=== PATIENT | female | born 1995 | race Caucasian/White ===

== ENCOUNTER 2017-01-16 23:05 | Inpatient (IN) | payer MEDICAID ==
[~2017-01-16] VITALS: Ht 157.5 cm; Wt 38.6 kg
[~2017-01-16 23:05] MED LIST: CARAFATE1 G PO; IMITREX50 MG PO; LANTUS SOL100 UNIT/1 SQ; LINZESS290 MCG PO; NOVOLOG100 U/M1
[2017-01-16 23:39] LABS: HEMATOCRIT 39.7 % (36.0-48.0); HEMOGLOBIN 12.9 g/dL (12-16); MCH 27.7 pg (26.0-34.0); MCHC 32.5 g/dL (31.0-37.0); MCV 85.4 fL (80.0-100.0); MEAN PLATELET VOLUME 11.6 fL (7.4-10.4); PLATELET COUNT 256 10x3/uL (130-400); RBC 4.65 10x6/uL (4.00-5.40); RDW 13.7 % (11.5-14.5); WBC 22.7 10x3/uL (4.8-10.8)
[2017-01-16 23:45] LABS: KETONE - SERUM MODERATE mg/dL (NEGATIVE)
[2017-01-16 23:47] LABS: HCG SERUM NEGATIVE (NEGATIVE)
[2017-01-16 23:51] LABS: ALBUMIN 4.3 g/dL (3.4-5.0); ALKALINE PHOSPHATASE 147 U/L (46-116); ALT (SGPT) 27 U/L (10-68); AMYLASE - SERUM 28 U/L (25-115); BILIRUBIN - TOTAL 0.56 mg/dL (0.2-1.3); CALCIUM 9.8 mg/dL (8.5-10.1); CARBON DIOXIDE 10.9 mmol/L (21.0-32.0); CHLORIDE - SERUM 96 mmol/L (98-107); CREATININE - SERUM 1.1 mg/dL (0.6-1.3); LIPASE 59 U/L (73-393); POTASSIUM - SERUM 4.8 mmol/L (3.5-5.1); PROTEIN - SERUM 9.2 g/dL (6.4-8.2); SODIUM 134 mmol/L (136-145); UREA NITROGEN 16 mg/dL (7-18); eGFR NON AFRICAN AMERICAN 65 mL/min (90-120)
[2017-01-16 23:53] LABS: CALC OSMOLALITY 292 mosm/kg (275-300); GLUCOSE 531 mg/dL (74-106)
[2017-01-17 00:05] LABS: LYMPHOCYTES 12 % (15-50); MONOCYTES 3 % (2-11); NEUTROPHILS 81 % (40-80); PLATELET ESTIMATE NORMAL; PLATELET MORPHOLOGY GIANT PLTS PRESENT
[2017-01-17 01:16] LABS: APPEARANCE HAZY (CLEAR); BILIRUBIN NEGATIVE (NEGATIVE); COLOR YELLOW (YELLOW); GLUCOSE 1000 mg/dL (NEGATIVE); KETONE LARGE mg/dL (NEGATIVE); NITRITE NEGATIVE (NEGATIVE); PROTEIN TRACE mg/dL (NEGATIVE); UROBILINOGEN NORMAL (NORMAL)
[2017-01-17 01:24] LABS: BACTERIA MODERATE /hpf (NONE SEEN); EPITHELIAL CELLS 0-5 /hpf (0-5); LEUKOCYTE ESTERASE TRACE (NEGATIVE); MUCUS >1+ /lpf (NONE SEEN); RED CELLS - URINE 0-5 /hpf (0-5); WHITE CELLS - URINE 0-5 /hpf (0-5)
[2017-01-17 01:25] LABS: GRANULAR CAST OCC /lpf (NONE SEEN); HYALINE CAST 0-5 /lpf (NONE SEEN); WAXY CAST OCC /lpf (NONE SEEN)
[2017-01-17 02:09] LABS: HEMOGLOBIN A1C 11.4 % (4.8-6.0)
[2017-01-17 02:21] LABS: MAGNESIUM - SERUM 1.7 mg/dL (1.8-2.4); PHOSPHOROUS 5.1 mg/dL (2.5-4.9); THYROID STIMULATING HORMONE 0.78 uIU/mL (0.36-3.74)
[2017-01-17 06:15] LABS: BASOPHILS 0.2 % (0.0-2.0); EOSINOPHILS 0.1 % (0-7); HEMOGLOBIN 10.9 g/dL (12-16); IMMATURE GRANULOCYTES 1.2 % (0-5); LYMPHOCYTES 12.3 % (15-50); MCH 27.7 pg (26.0-34.0); MCHC 32.1 g/dL (31.0-37.0); MCV 86.3 fL (80.0-100.0); MONOCYTES 8.1 % (2-11); NEUTROPHILS 78.1 % (40-80); RBC 3.94 10x6/uL (4.00-5.40); RDW 14.1 % (11.5-14.5)
[2017-01-17 06:20] LABS: PLATELET COUNT 390 10x3/uL (130-400); WBC 15.3 10x3/uL (4.8-10.8)
[2017-01-17 06:27] LABS: ALBUMIN 3.3 g/dL (3.4-5.0); ALKALINE PHOSPHATASE 114 U/L (46-116); ALT (SGPT) 21 U/L (10-68); BILIRUBIN - TOTAL 0.27 mg/dL (0.2-1.3); CALC OSMOLALITY 290 mosm/kg (275-300); CALCIUM 8.6 mg/dL (8.5-10.1); CARBON DIOXIDE 16.9 mmol/L (21.0-32.0); CHLORIDE - SERUM 110 mmol/L (98-107); CREATININE - SERUM 0.8 mg/dL (0.6-1.3); GLUCOSE 242 mg/dL (74-106); POTASSIUM - SERUM 4.1 mmol/L (3.5-5.1); PROTEIN - SERUM 6.9 g/dL (6.4-8.2); SODIUM 143 mmol/L (136-145); UREA NITROGEN 8 mg/dL (7-18); eGFR NON AFRICAN AMERICAN > 90 mL/min (90-120)
[2017-01-17 09:45] LABS: CALCIUM 8.6 mg/dL (8.5-10.1); CHLORIDE - SERUM 112 mmol/L (98-107); CREATININE - SERUM 0.7 mg/dL (0.6-1.3); MAGNESIUM - SERUM 1.9 mg/dL (1.8-2.4); POTASSIUM - SERUM 3.5 mmol/L (3.5-5.1); SODIUM 146 mmol/L (136-145); UREA NITROGEN 6 mg/dL (7-18); eGFR NON AFRICAN AMERICAN > 90 mL/min (90-120)
[2017-01-17 09:49] LABS: CALC OSMOLALITY 288 mosm/kg (275-300); CARBON DIOXIDE 21.6 mmol/L (21.0-32.0); GLUCOSE 95 mg/dL (74-106)
[2017-01-17 10:06] LABS: ALBUMIN 3.3 g/dL (3.4-5.0); ALKALINE PHOSPHATASE 116 U/L (46-116); ALT (SGPT) 21 U/L (10-68); BILIRUBIN - DIRECT 0.06 mg/dL (0.00-0.30); BILIRUBIN - INDIRECT 0.24 mg/dL (0.00-1.00); PROTEIN - SERUM 7.7 g/dL (6.4-8.2)
[2017-01-17 13:13] LABS: CALC OSMOLALITY 278 mosm/kg (275-300); CALCIUM 8.4 mg/dL (8.5-10.1); CARBON DIOXIDE 20.3 mmol/L (21.0-32.0); CHLORIDE - SERUM 108 mmol/L (98-107); CREATININE - SERUM 0.6 mg/dL (0.6-1.3); MAGNESIUM - SERUM 1.7 mg/dL (1.8-2.4); POTASSIUM - SERUM 3.4 mmol/L (3.5-5.1); SODIUM 142 mmol/L (136-145); UREA NITROGEN 7 mg/dL (7-18); eGFR NON AFRICAN AMERICAN > 90 mL/min (90-120)
[2017-01-17 13:17] LABS: GLUCOSE 66 mg/dL (74-106)
--- NOTE | 2017-01-17 15:54 | NUR ---
RECEIVED TO ROOM 2226 FROM ER VIA . ORIENTED TO ROOM AND CALL LIGHT SYSTEM. PASSWORD, PHARMACY, AND EMERGENCY INFO OBTAINED. CALL LIGHT IN REACH. WILL CONTINUE WITH PLAN OF CARE.
[2017-01-17] MEDS ORDERED: LEVEMIR100 U/M1 SC (15:57)
[2017-01-17] MEDS ORDERED: PROTONIX40 MG PO (15:57)
[2017-01-17] MEDS ORDERED: PHENERGAN25 M1 PO (15:58)
[2017-01-17] MEDS ORDERED: REGLAN10 MG PO (15:59)
--- NOTE | 2017-01-17 16:09 | NUR ---
NS INITIATED @ 100 CC/HR VIA PUMP. ZOFRAN 4 MG SIVP PER C/O NAUSEA/VOMITING. REFUSES LOVENOX.
[2017-01-17 16:12] VITALS: BP 118/72; BMI 15.5
[2017-01-17 16:58] VITALS: BP 118/72
--- NOTE | 2017-01-17 18:53 | NUR ---
STILL VOMITING. HR UP TO 170 BPM. SPOKE WITH ALICIA CEDILLO APN. NEW ORDERS RECEIVED.
--- NOTE | 2017-01-17 18:55 | NUR ---
SPOKE WITH DR. BALDERAS. NEW ORDER FOR NS IV BOLUS.
[2017-01-17 20:00] VITALS: BP 146/88
[2017-01-17 20:23] LABS: CALCIUM 8.3 mg/dL (8.5-10.1); CHLORIDE - SERUM 100 mmol/L (98-107); CREATININE - SERUM 0.6 mg/dL (0.6-1.3); SODIUM 134 mmol/L (136-145); eGFR NON AFRICAN AMERICAN > 90 mL/min (90-120)
[2017-01-17 20:24] LABS: CALC OSMOLALITY 280 mosm/kg (275-300); GLUCOSE 378 mg/dL (74-106); POTASSIUM - SERUM 4.1 mmol/L (3.5-5.1); UREA NITROGEN 5 mg/dL (7-18)
[2017-01-17 20:25] LABS: CARBON DIOXIDE 7.6 mmol/L (21.0-32.0)
[2017-01-17 22:36] LABS: CKMB 0.9 U/L (0.0-3.6); CREATINE KINASE 40 UL (21-215)
[2017-01-17 22:41] LABS: TROPONIN-I < 0.017 ng/mL (0.000-0.060)
--- NOTE | 2017-01-17 23:40 | NUR ---
UPDATE CALLED TO DR. BALDERAS, NEW ORDERS RECIEVED
[2017-01-18] VITALS: BP 116/71
[2017-01-18 04:00] VITALS: BP 109/69
--- NOTE | 2017-01-18 06:30 | NUR ---
PATIENT HAS BEEN THROWING UP ALL NIGHT HAVE BEEN GIVING THE ZOFRAN ORDERED. IS WANTING SOMETHING SRONGER. PATIENT HR HAS BEEN UP IN THE 150S TO 160S CALLED DR. BALDERAS AND HE ORDERD LOPRESSOR 25MG BID GAVE THE FIRST DOSE AROUND 1230AM AND HR DROPPED TO 93. OF 614 THIS MORNING MD HR IS BACK UP AGAIN TO 135 PER TELEMTRY NURSE. WILL NOTIFY ONCOMING NURSE ON WHAT TO DO. OF NOW PT IS RESTING COMFORTABLY IN BED. DENIES PAIN @ THIS TIME. BED LOW, LOCKED, CALL LIGHT IN REACH.
[2017-01-18 06:49] LABS: UDS - AMPHET NEGATIVE QUAL (NEGATIVE); UDS - BARB NEGATIVE QUAL (NEGATIVE); UDS - BENZO NEGATIVE QUAL (NEGATIVE); UDS - COCAINE NEGATIVE QUAL (NEGATIVE); UDS - METH NEGATIVE QUAL (NEGATIVE); UDS - OPIATE NEGATIVE QUAL (NEGATIVE); UDS - PCP NEGATIVE QUAL (NEGATIVE); UDS - THC POSITIVE QUAL (NEGATIVE)
[2017-01-18 07:52] LABS: BASOPHILS 0.2 % (0.0-2.0); EOSINOPHILS 0 % (0-7); HEMATOCRIT 37.4 % (36.0-48.0); HEMOGLOBIN 11.9 g/dL (12-16); IMMATURE GRANULOCYTES 1.3 % (0-5); LYMPHOCYTES 7.9 % (15-50); MCH 27.7 pg (26.0-34.0); MCHC 31.8 g/dL (31.0-37.0); MCV 87.2 fL (80.0-100.0); MEAN PLATELET VOLUME 11.4 fL (7.4-10.4); MONOCYTES 7.7 % (2-11); NEUTROPHILS 82.9 % (40-80); RBC 4.29 10x6/uL (4.00-5.40); RDW 14.5 % (11.5-14.5); WBC 16.6 10x3/uL (4.8-10.8)
[2017-01-18 07:56] LABS: PLATELET COUNT 221 10x3/uL (130-400)
[2017-01-18 08:20] VITALS: BP 117/79
[2017-01-18 08:23] LABS: ALBUMIN 3.5 g/dL (3.4-5.0); ALKALINE PHOSPHATASE 127 U/L (46-116); ALT (SGPT) 22 U/L (10-68); BILIRUBIN - TOTAL 0.43 mg/dL (0.2-1.3); CHLORIDE - SERUM 107 mmol/L (98-107); CKMB 0.8 U/L (0.0-3.6); CREATINE KINASE 31 UL (21-215); POTASSIUM - SERUM 4.1 mmol/L (3.5-5.1); PROTEIN - SERUM 8.2 g/dL (6.4-8.2); SODIUM 140 mmol/L (136-145); UREA NITROGEN 6 mg/dL (7-18)
[2017-01-18 08:24] LABS: CALC OSMOLALITY 282 mosm/kg (275-300); CARBON DIOXIDE 12.8 mmol/L (21.0-32.0); CREATININE - SERUM 0.8 mg/dL (0.6-1.3); GLUCOSE 198 mg/dL (74-106); TROPONIN-I < 0.017 ng/mL (0.000-0.060); eGFR NON AFRICAN AMERICAN > 90 mL/min (90-120)
--- NOTE | 2017-01-18 08:55 | NUR ---
SCHEDULED MEDICATIONS ADMINISTERED AT THIS TIME WELL PRN ZOFRAN FOR NAUSEA WITHOUT EMESIS. PT REFUSING LOPRESSOR D/T NAUSEA AT THIS TIME. IV TO RIGHT WRIST PATENT. ASSESSMENT PERFORMED PER FLOWSHEET. CALL LIGHT IN REACH, WILL CONTINUE WITH PLAN OF CARE.
[2017-01-18 12:30] VITALS: BP 119/73
--- NOTE | 2017-01-18 13:30 | NUR ---
IV DISCONNECTED SO THAT PT MAY SHOWER AT THIS TIME. EMPTIED 500ML OF BILE COLORED EMESIS FROM EMESIS BAG. [place] HAT EMPTIED AND PT HAD 900 ML OF CLEAR, YELLOW URINE AT THIS TIME. FAMILY AT BEDSIDE. CALL LIGHT IN REACH, WILL CONTINUE WITH PLAN OF CARE.
[2017-01-18 13:43] VITALS: Ht 157.5 cm; Wt 38.6 kg
--- NOTE | 2017-01-18 15:03 | NUR ---
Patient Name: LUCIEN SCHROEDER Admission Status: ER Accout number: [id number] Admission Date: 01-17-2017 : 1995 Admission Diagnosis: Attending: JOSHUA Current LOS: 1 Anticipated DC Date: 01-21-2017 Planned Disposition: Home Primary Insurance: [place]ID [place] Discharge Planning Comments: CM MET WITH PATIENT REGARDING D/C NEEDS AND PLANS. PATIENT LIVES WITH HER FIANCE AND HE WILL DRIVE HER HOME AT DISCHARGE. PATIENT STATED SHE HAS 7 STEPS W/RAILS TO ENTER HOME AND NO STAIRS INSIDE. PATIENT STATED SHE IS INDEPENDENT WITH HER CARE AND HAS ONLY A GLUCOMETER AT HOME. PATIENT CHECKS HER BLOOD SUGAR 4 X A DAY. PATIENTS PCP IS [facility] AND PHARMACY IS [facility] ON [address]. PATIENT DENIES NEEDS FOR HOME HEALTH AT THIS TIME. CM WILL CONTINUE TO FOLLOW PATIENT WITH D/C NEEDS AND PLANS. PCP [facility] [address]- [phone] JUAN R HERNANDEZ ([facility]) [phone] Sodium Chlorite Operator: Hawa Barahona Is the patient Alert and Oriented? Yes 0 * How many steps to enter\exit or inside your home? 7 w/rails 0 * PCP [facility] 0 * Pharmacy [facility] [address] 0 * Preadmission Environment Home with Family 0 * ADLs Independent 0 * Equipment None 0 * List name and contact numbers for known caregivers / representatives who currently or will assist patient after discharge: JUAN R HERNANDEZ ([facility]) [phone] 0 * Community resources currently utilized None 0 * Additional services required to return to the preadmission environment? Yes 0 * Can the patient safely return to the preadmission environment? Yes 0 * Has this patient been hospitalized within the prior 30 days at any hospital? No 0 Grand Total: 0
[2017-01-18 16:36] VITALS: BP 131/83
[2017-01-18 20:00] VITALS: BP 126/76
--- NOTE | 2017-01-18 20:00 | NUR ---
ASSESSMENT PER MAR. IV PATENT RT WRIST OF NS AT 150CC'S/HR SITE CLEAR. TURNS SELF IN BED SR UP X2 CALL LIGHT WITHIN REACH [id number]. COVERED WITH 2 UNITS OF HUMALOG INSULIN OER S/S.
--- NOTE | 2017-01-18 21:00 | NUR ---
MEDS GIVEN PER JAN. TELM. SHOWS ST WITH HR 114.
--- NOTE | 2017-01-18 23:30 | NUR ---
RESTING QUIETLY RESPIRATIONS WITH EASE AND UNLABORED.
--- NOTE | 2017-01-19 | NUR ---
SIFQ=720. 4 UNITS HUMALOG INSULIN GIVEN PER MAR.
--- NOTE | 2017-01-19 04:00 | NUR ---
CEWH=172. 2 UNITS HUMALOG INSULIN GIVEN PER JAN.
[2017-01-19 04:09] VITALS: BP 107/69
--- NOTE | 2017-01-19 06:00 | NUR ---
RESING QUIETLY DENIES NEEDS.
[2017-01-19 06:10] LABS: BASOPHILS 0.3 % (0.0-2.0); EOSINOPHILS 0.1 % (0-7); HEMATOCRIT 34.3 % (36.0-48.0); HEMOGLOBIN 10.8 g/dL (12-16); IMMATURE GRANULOCYTES 1.2 % (0-5); LYMPHOCYTES 12.3 % (15-50); MCH 27.7 pg (26.0-34.0); MCHC 31.5 g/dL (31.0-37.0); MCV 87.9 fL (80.0-100.0); MEAN PLATELET VOLUME 11.8 fL (7.4-10.4); MONOCYTES 10.6 % (2-11); NEUTROPHILS 75.5 % (40-80); PLATELET COUNT 183 10x3/uL (130-400); RDW 14.7 % (11.5-14.5); WBC 15.2 10x3/uL (4.8-10.8)
[2017-01-19 07:00] LABS: ALBUMIN 3.2 g/dL (3.4-5.0); ALKALINE PHOSPHATASE 124 U/L (46-116); ALT (SGPT) 19 U/L (10-68); BILIRUBIN - TOTAL 0.42 mg/dL (0.2-1.3); CALC OSMOLALITY 286 mosm/kg (275-300); CALCIUM 8.8 mg/dL (8.5-10.1); CARBON DIOXIDE 10.4 mmol/L (21.0-32.0); CHLORIDE - SERUM 109 mmol/L (98-107); CREATININE - SERUM 0.7 mg/dL (0.6-1.3); GLUCOSE 153 mg/dL (74-106); POTASSIUM - SERUM 3.3 mmol/L (3.5-5.1); PROTEIN - SERUM 7.3 g/dL (6.4-8.2); SODIUM 144 mmol/L (136-145); UREA NITROGEN 4 mg/dL (7-18); eGFR NON AFRICAN AMERICAN > 90 mL/min (90-120)
[2017-01-19 07:24] LABS: HEMOGLOBIN A1C 11.4 % (4.8-6.0)
--- NOTE | 2017-01-19 08:34 | NUR ---
SCHEDULED MEDICATIONS ADMINSITERED AT THIS TIME WELL PRN REGLAN FOR NAUSEA AND VOMITING. PT HAS ALREADY EXPERIENCED 300ML OF BILE COLORED EMESIS AT THIS TIME. IV TO RIGHT WRIST PATENT WITH NO S/S OF INFILTRATION PRESENT. ASSESSMENT PERFORMED PER FLOWSHEET. PROVIDED PT WITH SMALL CUP OF ICE CHIPS AND WARNED HER TO EAT THEM SPARINGLY. CALL LIGHT IN REACH, WILL CONTINUE WITH PLAN OF CARE.
[2017-01-19 08:40] VITALS: BP 133/76
--- NOTE | 2017-01-19 10:30 | NUR ---
PROVIDED WITH CLEAR LIQUIDS AT THIS TIME. SPOKE WITH THAD REGARDING LEVEMIR. WAS TOLD THAT IF PT CAN TOLERATE CLEAR LIQUIDS WITHOUT EMESIS OR NAUSEA, THEN LEVEMIR MAY BE RESTARTED.
--- NOTE | 2017-01-19 11:35 | NUR ---
PT'S IV TO RIGHT WRIST LEAKING AROUND INSERTION SITE. SCHEDULED MEDICATIONS BEING GIVEN AT THIS TIME. WILL CONTINUE WITH PLAN OF CARE.
[2017-01-19 13:31] VITALS: BP 123/81
[2017-01-19] MEDS ORDERED: LEVEMIR100 U/M1 SC (14:14)
[2017-01-19] MEDS ORDERED: NOVOLOG100 U/M1 SQ (14:17)
--- NOTE | 2017-01-19 14:40 | NUR ---
SIGNED AMA FORM AT THIS TIME PT STATES SHE IS FEELING BETTER AND NEEDS TO GET HOME TO TAKE CARE OF HER DAUGHTER. DR GUADALUPE AWARE, BUT DOES NOT FEEL A DISCHARGE ORDER IS PROPER AT THIS TIME.
--- NOTE | 2017-01-19 15:31 | NUR ---
CM REASSESSMENT NOTE: PATIENT LEFT AMA
--- NOTE | 2017-02-01 14:37 | EC ---
PATIENT:LUCIEN SCHROEDER DATE OF SERVICE: 01/17/17 SEX: F MEDICAL RECORD: [id number] DATE OF : [birth year] LOCATION:[facility] AGE OF PATIENT: 21 ADMISSION DATE: 01/17/17 REFERRING PHYSICIAN: INTERPRETING PHYSICIAN: GIN BURKETT MD ECHOCARDIOGRAM REPORT ECHO CHARGES 4 ECHO COMPLETE CLINICAL DIAGNOSIS: TACHYCARDIA ECHOCARDIOGRAPHIC MEASUREMENTS (adult normal given) AC root (d.<3.7cm) 2.5 LV Septum d (<1.2 cm> 0.9 Valve Excursion 1.2 LV Septum (systole) 1.0 Left Atria (s.<4.0cm> 2.0 LVPW d(<1.2cm) 1.0 RV (d.<2.3cm) 2.7 LVPW (sytole) 1.1 LV diastole(<5.6CM) 4.0 MV E-F(>70mm/sec) LV systole 2.8 LVOT Diameter 1.8 MV exc.(>10mm) 1.6 Est.ejection fraction (50-75%) Pericardial Effusion N DOPPLER: LVIT A 108 E LA RVSP 20 LVOT 43 AOP1/2T Asc. Ao 110 RVOT 122 RA PA 128 AV Gradient Peak 4.86 AV Mean 2.36 AV Area 2.0 MV Gradient Peak 4.09 MV Mean 1.7 MV Area COMMENTS: Operations Support Representative: Destinee BILLY Informatics Application Analyst:Urvashi Burkett TAPE# PACS DATE OF SERVICE: 01/18/2017 FINDINGS: 1. Left ventricular chamber size is within normal limits. Left ventricular systolic function is normal. Overall ejection fraction estimated at 60%. 2. Left atrium, right atrium, and right ventricular chamber sizes are within normal limits. 3. Valvular structures have normal structure and motion. 4. Doppler interrogation reveals no significant valvular insufficiency or stenosis and pulmonary systolic pressure is normal estimated at 20 mmHg. ECHOCARDIOGRAM REPORT [id number] LUCIEN SCHROEDER 5. No evidence of pericardial effusion or left ventricular thrombus. TRANSINT:[id number] Voice Confirmation ID: [id number] DOCUMENT ID: [id number] GIN BURKETT MD at 1437 CC: [id number] DICTATION DATE: 01/18/17 1223 HIGH SCHOOL HISTORY TEACHER: 03/14/17 1459 DIS IN 01/19/17 [facility] [address] [place] [address]
== END 2017-01-19 15:00 | disposition left against medical advice (07) | DRG 639 ==
LOC: D.ER 23:05 → OBSVTIME 01-17 15:09 → D.MS 01-17 15:09
PROVIDERS: Emergency Medicine; Family Medicine; ADMIT Family Medicine Adult Medicine
DX: E13.10 Other specified diabetes mellitus with ketoacidosis without coma (principal); Z79.4 Long term (current) use of insulin; G43.909 Migraine, unspecified, not intractable, without status migrainosus; H92.01 Otalgia, right ear; D64.9 Anemia, unspecified; R00.0 Tachycardia, unspecified

== ENCOUNTER 2019-02-24 12:14 | Inpatient (IN) | payer MEDICAID ==
[~2019-02-24 12:14] MED LIST changes: +LEVEMIR100 U/M1 SC; +NOVOLOG100 U/M1 SQ; +PHENERGAN25 M1 PO; +PROTONIX40 MG PO; +REGLAN10 MG PO
[2019-02-24 12:54] LABS: BASOPHILS 0.2 % (0-2); EOSINOPHILS 0.1 % (0-7); HEMATOCRIT 42.1 % (36.0-48.0); HEMOGLOBIN 13.8 g/dL (12-16); IMMATURE GRANULOCYTES 0.5 % (0-5); LYMPHOCYTES 8.1 % (15-50); MCH 25.5 pg (26.0-34.0); MCHC 32.8 g/dL (31.0-37.0); MCV 77.7 fL (80.0-100.0); MEAN PLATELET VOLUME 11.1 fL (7.4-10.4); MONOCYTES 2.6 % (2-11); NEUTROPHILS 88.5 % (40-80); RBC 5.42 10x6/uL (4.00-5.40); RDW 16.2 % (11.5-14.5); WBC 15.1 10x3/uL (4.8-10.8)
[2019-02-24 12:55] LABS: PLATELET COUNT 252 10x3/uL (130-400)
[2019-02-24 12:58] LABS: KETONE - SERUM NEGATIVE (NEGATIVE)
[2019-02-24 13:01] LABS: APPEARANCE CLEAR (CLEAR); COLOR YELLOW (YELLOW)
[2019-02-24 13:02] LABS: BILIRUBIN NEGATIVE (NEGATIVE); GLUCOSE 1000 mg/dL (NEGATIVE); KETONE LARGE mg/dL (NEGATIVE); NITRITE NEGATIVE (NEGATIVE); PROTEIN 3+ mg/dL (NEGATIVE); UROBILINOGEN NORMAL (NORMAL)
[2019-02-24 13:04] LABS: AMORPHOUS SEDIMENT <1+ /lpf (NONE SEEN); BACTERIA FEW /hpf (NONE SEEN); EPITHELIAL CELLS 0-5 /hpf (0-5); GRANULAR CAST OCC /lpf (NONE SEEN); RED CELLS - URINE 0-5 /hpf (0-5); WHITE CELLS - URINE 0-5 /hpf (0-5)
[2019-02-24 13:11] LABS: ALBUMIN 4.5 g/dL (3.4-5.0); ALKALINE PHOSPHATASE 114 U/L (46-116); ALT (SGPT) 24 U/L (10-68); BILIRUBIN - TOTAL 0.32 mg/dL (0.2-1.3); CALC OSMOLALITY 291 mosm/kg (275-300); CALCIUM 9.5 mg/dL (8.5-10.1); CHLORIDE - SERUM 99 mmol/L (98-107); GLUCOSE 340 mg/dL (74-106); POTASSIUM - SERUM 3.5 mmol/L (3.5-5.1); PROTEIN - SERUM 9.1 g/dL (6.4-8.2); SODIUM 139 mmol/L (136-145); UREA NITROGEN 14 mg/dL (7-18); eGFR NON AFRICAN AMERICAN 72 mL/min (90-120)
[2019-02-24 14:24] LABS: HCG SERUM NEGATIVE (NEGATIVE)
[2019-02-24 15:16] VITALS: BP 148/92
--- NOTE | 2019-02-24 16:00 | NUR ---
PT ARRIVED TO FLOOR VIA STRETCHER PUSHED BY BALL POINTS INSPECTOR. PT TRANSFERRED SELF TO BED. PT VOMITING CLEAR BROWN EMESIS. NO S/S OF ACUTE DISTRESS. CL IN PLACE.
[2019-02-24 16:11] VITALS: BP 126/81; BMI 18.3
--- NOTE | 2019-02-24 18:29 | NUR ---
PT RESTING IN BED. NO S/S OF ACUTE DISTRESS. CL IN PLACE.
--- NOTE | 2019-02-24 19:34 | NUR ---
RECEIVED REPROT, ASSUMED CARE, A&O, DENIES NEEDS, CALL LIGHT IN REACH, BED LOWEST POSITION, WILL CONTINUE POC
[2019-02-24 19:37] VITALS: BP 108/45
[2019-02-25 00:56] VITALS: BP 121/67
--- NOTE | 2019-02-25 01:30 | NUR ---
TELEMETRY CALLED PT HR 140S, CHECKED ON PT SHE STATED SHE HAD JUST VOMITED
--- NOTE | 2019-02-25 05:40 | NUR ---
I have reviewed this patient and I concur with the Shift Assessment completed by the Licensed Practical Nurse today this shift.
[2019-02-25 07:07] LABS: BASOPHILS 0.1 % (0-2); EOSINOPHILS 0 % (0-7); HEMATOCRIT 35.1 % (36.0-48.0); HEMOGLOBIN 11.1 g/dL (12-16); IMMATURE GRANULOCYTES 0.4 % (0-5); LYMPHOCYTES 10.6 % (15-50); MCH 25.2 pg (26.0-34.0); MCHC 31.6 g/dL (31.0-37.0); MCV 79.6 fL (80.0-100.0); MEAN PLATELET VOLUME 11.1 fL (7.4-10.4); MONOCYTES 4.6 % (2-11); NEUTROPHILS 84.3 % (40-80); RBC 4.41 10x6/uL (4.00-5.40); RDW 16.7 % (11.5-14.5)
[2019-02-25 07:08] LABS: PLATELET COUNT 104 10x3/uL (130-400); WBC 10.3 10x3/uL (4.8-10.8)
[2019-02-25 07:47] LABS: ALBUMIN 3.5 g/dL (3.4-5.0); ALKALINE PHOSPHATASE 80 U/L (46-116); ALT (SGPT) 19 U/L (10-68); CALCIUM 8.4 mg/dL (8.5-10.1); CHLORIDE - SERUM 109 mmol/L (98-107); MAGNESIUM - SERUM 1.5 mg/dL (1.8-2.4); PHOSPHOROUS 3.1 mg/dL (2.5-4.9); POTASSIUM - SERUM 3.5 mmol/L (3.5-5.1); PROTEIN - SERUM 7.3 g/dL (6.4-8.2); SODIUM 145 mmol/L (136-145)
[2019-02-25 07:52] LABS: CALC OSMOLALITY 294 mosm/kg (275-300); CARBON DIOXIDE 16.7 mmol/L (21.0-32.0); CREATININE - SERUM 0.6 mg/dL (0.6-1.3); GLUCOSE 229 mg/dL (74-106); UREA NITROGEN 9 mg/dL (7-18); eGFR NON AFRICAN AMERICAN > 90 mL/min (90-120)
--- NOTE | 2019-02-25 07:53 | NUR ---
PT VOMITING CLEAR YELLOW LIQUID. "NOTHING HELPS BUT THE PHENERGAN" NO S/S OF ACUTE DISTRESS. CL IN PLACE.
[2019-02-25 08:45] VITALS: BP 129/80
[2019-02-25 12:00] VITALS: BP 141/80
--- NOTE | 2019-02-25 13:05 | NUR ---
SPOKE WITH YIN IN THE LAB ABOUT KETONE BEING DRAWN ORDERED PER . " I THOUGHT THEY ADDED THAT TO AM LABS". EXPLAINED TO LAB THAT WE NEEDED A NEW DRAW. LAB WILL COME AND REDRAW PT FOR KETONES.
--- NOTE | 2019-02-25 14:27 | NUR ---
RECHECK FSBS-170. NO VOMITING SINCE DOSE OF PHENERGAN.
--- NOTE | 2019-02-25 14:38 | NUR ---
CALLED [facility] ABOUT LAB SMALL AMOUNT OF KETONES AND REPORTED BLOOD GAS. PT OK TO STAY ON UNIT. WILL CONTINUE TO MONITOR FSBS.
[2019-02-25 16:30] VITALS: BP 138/76
--- NOTE | 2019-02-25 18:04 | NUR ---
PT RESTING IN BED. PHENERGAN GIVEN FOR N/V. NO S/S OF ACUTE DISTRESS. CL IN PLACE.
[2019-02-25 20:31] VITALS: BP 110/65
[2019-02-26] VITALS (12 sets, daily range): BP systolic 118–156; BP diastolic 72–105; BMI 18.3
--- NOTE | 2019-02-26 02:56 | NUR ---
I have reviewed this patient and I concur with the Shift Assessment completed by the Licensed Practical Nurse today this shift.
[2019-02-26 06:39] LABS: BASOPHILS 0.1 % (0-2); EOSINOPHILS 0 % (0-7); HEMATOCRIT 34.1 % (36.0-48.0); HEMOGLOBIN 10.8 g/dL (12-16); IMMATURE GRANULOCYTES 0.8 % (0-5); LYMPHOCYTES 6.7 % (15-50); MCH 25.3 pg (26.0-34.0); MCHC 31.7 g/dL (31.0-37.0); MCV 79.9 fL (80.0-100.0); MEAN PLATELET VOLUME 10.6 fL (7.4-10.4); MONOCYTES 3.8 % (2-11); NEUTROPHILS 88.6 % (40-80); RBC 4.27 10x6/uL (4.00-5.40); RDW 16.7 % (11.5-14.5); WBC 10.5 10x3/uL (4.8-10.8)
[2019-02-26 06:40] LABS: PLATELET COUNT 74 10x3/uL (130-400)
[2019-02-26 06:45] LABS: ALBUMIN 3.5 g/dL (3.4-5.0); ALKALINE PHOSPHATASE 76 U/L (46-116); ALT (SGPT) 20 U/L (10-68); BILIRUBIN - TOTAL 0.39 mg/dL (0.2-1.3); CALC OSMOLALITY 289 mosm/kg (275-300); CALCIUM 8.3 mg/dL (8.5-10.1); CARBON DIOXIDE 14.1 mmol/L (21.0-32.0); CHLORIDE - SERUM 107 mmol/L (98-107); CREATININE - SERUM 0.7 mg/dL (0.6-1.3); GLUCOSE 246 mg/dL (74-106); MAGNESIUM - SERUM 1.7 mg/dL (1.8-2.4); POTASSIUM - SERUM 3.4 mmol/L (3.5-5.1); SODIUM 142 mmol/L (136-145); UREA NITROGEN 10 mg/dL (7-18); eGFR NON AFRICAN AMERICAN > 90 mL/min (90-120)
[2019-02-26 08:57] LABS: PLATELET ESTIMATE DECREASED
--- NOTE | 2019-02-26 10:34 | NUR ---
MORNING ASSESSMENT COMPLETE. SEE ASSESSMENT FLOWSHEET FOR FURTHER DETAILS. PT LYING IN BED AAO X4 TO PERSON, PLACE, TIME, AND SIUTATION. DENIES NEEDS AT THIS TIME. CL IN REACH. SIDE RAILS UP X3 FOR PT SAEFTY. BED IN LOWEST POSITION. N/V NOTED. GIVEN PHENERGAN AT 0830
[2019-02-26 15:25] LABS: % SATURATION 26 % (15-55); IRON 71 ug/dl (35-150); TOTAL IRON BIND CAPACITY 272 ug/dl (260-445); UNSAT IRON BIND CAPACITY 201 ug/dl (150-375)
[2019-02-26 15:33] LABS: HCG URINE NEGATIVE (NEGATIVE)
--- NOTE | 2019-02-26 15:46 | NUR ---
1415 TRANSFERRED TO ROOM 2307 VIA BED FROM [facility]
--- NOTE | 2019-02-26 15:48 | NUR ---
1545 VOIDED ON [facility] [place] SPECIMEN SENT TO LAB FOR PREGNANY TEST
--- NOTE | 2019-02-26 15:48 | NUR ---
[address] RIOS OFFICE FOR ESOPHAGITIS
--- NOTE | 2019-02-26 19:01 | NUR ---
REPORT RECEIVED, CARE ASSUMED. INITIAL ASSESSMENT COMPLETED, SEE FLOWSHEET FOR DETAILS. PT IS LAYING IN BED WITH EYES CLOSED AT THIS TIME. INSULIN DRIP TITRATED, SEE IV DRIPS FLOWSHEET FOR DETAILS. NO SIGNS OF ACUTE DISTRESS. WILL CONTINUE TO MONITOR.
--- NOTE | 2019-02-26 19:08 | NUR ---
1745 STARTED NEW IV WITH 20 GAUGE TO LEFT HAND DKA PROTOCAL ORDERED INITIATED NS AT 100M/HOUR SOFRAN GTT INFUSING AT 4.7ML/HOUR
--- NOTE | 2019-02-26 19:11 | NUR ---
Jaylan STARTED INSULIN GTT TOLEFT HAND AT 5.7 UNITS PER HOUR
[2019-02-26 20:35] LABS: CALC OSMOLALITY 285 mosm/kg (275-300); CALCIUM 8.9 mg/dL (8.5-10.1); CARBON DIOXIDE 14.6 mmol/L (21.0-32.0); CHLORIDE - SERUM 107 mmol/L (98-107); CREATININE - SERUM 0.8 mg/dL (0.6-1.3); MAGNESIUM - SERUM 1.8 mg/dL (1.8-2.4); POTASSIUM - SERUM 3.4 mmol/L (3.5-5.1); SODIUM 142 mmol/L (136-145); UREA NITROGEN 8 mg/dL (7-18); eGFR NON AFRICAN AMERICAN > 90 mL/min (90-120)
[2019-02-26 20:39] LABS: GLUCOSE 181 mg/dL (74-106)
--- NOTE | 2019-02-26 21:01 | NUR ---
PT IS RESTING IN BED WITH EYES CLOSED AT THIS TIME. NO SIGNS OF ACUTE DISTRESS. INSULIN DRIP TITRATED, SEE IV DRIPS FLOWSHEET FOR DETAILS. PT REQUESTED HER PRN NAUSEA MEDICATION, GIVEN PER EMAR. NO FURTHER NEEDS NOTED. WILL CONTINUE TO MONITOR.
--- NOTE | 2019-02-26 23:08 | NUR ---
REASSESSMENT COMPLETED, SEE FLOWSHEET FOR DETAILS. PT IS RESTING IN BED WITH EYES CLOSED AT THIS TIME. INSULIN DRIP TITRATED, SEE IV DRIPS FLOWSHEET FOR DETAILS. NO SIGNS OF ACUTE DISTRESS. NO NEEDS NOTED. WILL CONTINUE TO MONITOR.
[2019-02-27] VITALS (24 sets, daily range): BP systolic 102–147; BP diastolic 68–94
--- NOTE | 2019-02-27 01:08 | NUR ---
PT IS LAYING IN BED WITH EYES CLOSED AT THIS TIME. NO SIGNS OF ACUTE DISTRESS. INSULIN DRIP TITRATED, SEE IV DRIPS FLOWSHEET FOR DETAILS. WILL CONTINUE TO MONITOR.
--- NOTE | 2019-02-27 03:09 | NUR ---
REASSESSMENT COMPLETED, SEE FLOWSHEET FOR DETAILS. PT IS RESTING IN BED WITH EYES CLOSED. INSULIN DRIP TITRATED, SEE IV DRIP FLOWSHEET FOR DETAILS. NO SIGNS OF ACUTE DISTRESS. WILL CONTINUE TO MONITOR.
[2019-02-27 04:17] LABS: BASOPHILS 0.2 % (0-2); EOSINOPHILS 0.1 % (0-7); HEMATOCRIT 35.9 % (36.0-48.0); HEMOGLOBIN 11.7 g/dL (12-16); IMMATURE GRANULOCYTES 0.8 % (0-5); LYMPHOCYTES 13.3 % (15-50); MCH 25.7 pg (26.0-34.0); MCHC 32.6 g/dL (31.0-37.0); MCV 78.9 fL (80.0-100.0); MEAN PLATELET VOLUME 10.6 fL (7.4-10.4); MONOCYTES 10.1 % (2-11); NEUTROPHILS 75.5 % (40-80); RBC 4.55 10x6/uL (4.00-5.40); RDW 16.8 % (11.5-14.5)
[2019-02-27 04:29] LABS: PLATELET COUNT 115 10x3/uL (130-400); WBC 13.3 10x3/uL (4.8-10.8)
[2019-02-27 04:34] LABS: ALBUMIN 3.5 g/dL (3.4-5.0); ALKALINE PHOSPHATASE 77 U/L (46-116); ALT (SGPT) 23 U/L (10-68); BILIRUBIN - TOTAL 0.48 mg/dL (0.2-1.3); CALC OSMOLALITY 280 mosm/kg (275-300); CALCIUM 8.5 mg/dL (8.5-10.1); CARBON DIOXIDE 16.8 mmol/L (21.0-32.0); CHLORIDE - SERUM 106 mmol/L (98-107); CREATININE - SERUM 0.7 mg/dL (0.6-1.3); GLUCOSE 140 mg/dL (74-106); MAGNESIUM - SERUM 1.7 mg/dL (1.8-2.4); PROTEIN - SERUM 7.3 g/dL (6.4-8.2); SODIUM 141 mmol/L (136-145); UREA NITROGEN 6 mg/dL (7-18); eGFR NON AFRICAN AMERICAN > 90 mL/min (90-120)
--- NOTE | 2019-02-27 05:01 | NUR ---
PT IS RESTING IN BED WITH EYES CLOSED AT THIS TIME. INSULIN DRIP TITRATED. NO SIGNS OF ACUTE DISTRESS. WILL CONTINUE TO MONITOR.
--- NOTE | 2019-02-27 07:00 | NUR ---
SHIFT ASSESSMENT COMPLETED. PT CARE ASSUMED. MONITORS ON AND WORKING, VITALS STABLE. NO SIGNS/SYMPTOMS OF PAIN OR DISCOMFORT NOTED AT THIS TIME. SEE FLOW SHEET FOR FURTHER DETAILS. WILL CONTINUE TO OBSERVE.
[2019-02-27 08:37] LABS: CALC OSMOLALITY 276 mosm/kg (275-300); CALCIUM 8.4 mg/dL (8.5-10.1); CARBON DIOXIDE 19.2 mmol/L (21.0-32.0); CHLORIDE - SERUM 108 mmol/L (98-107); CREATININE - SERUM 0.7 mg/dL (0.6-1.3); GLUCOSE 138 mg/dL (74-106); MAGNESIUM - SERUM 1.7 mg/dL (1.8-2.4); SODIUM 139 mmol/L (136-145); UREA NITROGEN 5 mg/dL (7-18); eGFR NON AFRICAN AMERICAN > 90 mL/min (90-120)
--- NOTE | 2019-02-27 08:59 | NUR ---
Nutrition Follow Up: Consult recieved Pt assessed by RD yesterday Now in ICU and NPO Will continue to follow
--- NOTE | 2019-02-27 09:00 | NUR ---
NO SIGNS/SYMPTOMS OF PAIN OR DISCOMFORT NOTED AT THIS TIME, CALL LIGHT WITHIN REACH, WILL CONTINUE TO OBSERVE.
[2019-02-27 09:49] LABS: APPEARANCE CLEAR (CLEAR); BILIRUBIN NEGATIVE (NEGATIVE); COLOR YELLOW (YELLOW); GLUCOSE 1000 mg/dL (NEGATIVE); KETONE LARGE mg/dL (NEGATIVE); NITRITE NEGATIVE (NEGATIVE); PROTEIN NEGATIVE (NEGATIVE); SPECIFIC GRAVITY 1.025 (1.005-1.020); UROBILINOGEN NORMAL (NORMAL)
[2019-02-27 11:12] LABS: FOLATE (FOLIC ACID) - SERUM 14.9 ng/mL (>3.0)
[2019-02-27 13:14] LABS: CALC OSMOLALITY 278 mosm/kg (275-300); CALCIUM 8.8 mg/dL (8.5-10.1); CARBON DIOXIDE 18.5 mmol/L (21.0-32.0); CHLORIDE - SERUM 104 mmol/L (98-107); CREATININE - SERUM 0.7 mg/dL (0.6-1.3); GLUCOSE 168 mg/dL (74-106); MAGNESIUM - SERUM 1.5 mg/dL (1.8-2.4); POTASSIUM - SERUM 3.5 mmol/L (3.5-5.1); SODIUM 139 mmol/L (136-145); UREA NITROGEN 4 mg/dL (7-18); eGFR NON AFRICAN AMERICAN > 90 mL/min (90-120)
--- NOTE | 2019-02-27 19:11 | NUR ---
REPORT RECEIVED FROM OFF GOING NURSE. PT IS RESTING IN BED AT THIS TIME WITH EYES CLOSED. INITIAL ASSESSMENT COMPLETED, SEE FLOWSHEET FOR DETAILS. NO SIGNS OF ACUTE DISTRESS. WILL CONTINUE TO MONITOR.
--- NOTE | 2019-02-27 21:11 | NUR ---
PT IS RESTING IN BED AT THIS TIME WITH EYES CLOSED. NO SIGNS OF ACUTE DISTRESS. WILL CONTINUE TO MONITOR.
--- NOTE | 2019-02-27 23:02 | NUR ---
REASSESSMENT COMPLETED, SEE FLOWSHEET FOR DETAILS. PT IS RESTING IN BED WITH EYES CLOSED. INSULIN DRIP IS BEING TITRATED HOURLY. PT DENIES ANY NEEDS AT THIS TIME. NO SIGNS OF ACUTE DISTRESS. WILL CONTINUE TO MONITOR.
[2019-02-28] VITALS (24 sets, daily range): BP systolic 15–135; BP diastolic 67–100
--- NOTE | 2019-02-28 01:12 | NUR ---
IV IN PT'S RIGHT FOREARM STARTED TO HURT PT AND THE IV IN PT'S LEFT HAND WAS HARD TO FLUSH. BOTH IV'S DC'D AND NEW IV SITED IN RIGHT FOREARM. PT HAD NO COMPLAINTS. NO SIGNS OF ACUTE DISTRESS. WILL CONTINUE TO MONITOR.
--- NOTE | 2019-02-28 03:12 | NUR ---
REASSESSMENT COMPLETED, SEE FLOWSHEET FOR DETAILS. NO SIGNS OF ACUTE DISTRESS. PT IS LAYING IN BED WITH EYES CLOSED AT THIS TIME. WILL CONTINUE TO MONITOR.
--- NOTE | 2019-02-28 05:12 | NUR ---
PT IS RESTING IN BED WITH EYES CLOSED AT THIS TIME. NO NEEDS VOICED/NOTED. NO SIGNS OF ACUTE DISTRESS. WILL CONTINUE TO MONITOR
[2019-02-28 05:14] LABS: BASOPHILS 0.2 % (0-2); EOSINOPHILS 0.2 % (0-7); HEMATOCRIT 33.9 % (36.0-48.0); HEMOGLOBIN 11.1 g/dL (12-16); IMMATURE GRANULOCYTES 1.4 % (0-5); LYMPHOCYTES 28.8 % (15-50); MCH 25.5 pg (26.0-34.0); MCHC 32.7 g/dL (31.0-37.0); MCV 77.9 fL (80.0-100.0); MONOCYTES 10.8 % (2-11); NEUTROPHILS 58.6 % (40-80); PLATELET COUNT 100 10x3/uL (130-400); RBC 4.35 10x6/uL (4.00-5.40); RDW 16.7 % (11.5-14.5)
[2019-02-28 05:19] LABS: WBC 8.1 10x3/uL (4.8-10.8)
[2019-02-28 05:29] LABS: ALBUMIN 3.1 g/dL (3.4-5.0); ALKALINE PHOSPHATASE 69 U/L (46-116); ALT (SGPT) 25 U/L (10-68); BILIRUBIN - TOTAL 0.56 mg/dL (0.2-1.3); CALC OSMOLALITY 283 mosm/kg (275-300); CALCIUM 8.5 mg/dL (8.5-10.1); CARBON DIOXIDE 20.5 mmol/L (21.0-32.0); CHLORIDE - SERUM 105 mmol/L (98-107); CREATININE - SERUM 0.7 mg/dL (0.6-1.3); GLUCOSE 176 mg/dL (74-106); MAGNESIUM - SERUM 1.6 mg/dL (1.8-2.4); PROTEIN - SERUM 6.5 g/dL (6.4-8.2); SODIUM 142 mmol/L (136-145); UREA NITROGEN 4 mg/dL (7-18); eGFR NON AFRICAN AMERICAN > 90 mL/min (90-120)
[2019-02-28 05:34] LABS: POTASSIUM - SERUM 2.8 mmol/L (3.5-5.1)
--- NOTE | 2019-02-28 08:00 | NUR ---
DR. HIGHTOWER ORDERED PICC LINE PLACEMENT. NERY VENOUS ACCESS NURSE NOTIFIED.
--- NOTE | 2019-02-28 08:14 | NUR ---
VENOUS ACCESS NURSE AT BEDSIDE.
--- NOTE | 2019-02-28 09:29 | NUR ---
Nutrition Follow Up: Pt is currently NPO Briefly spoke with pt about diabetic diet Pt reports she has had DM for 11 years Pt reports she has met with a dietitian in the past Pt reports she counts carbohydrates but is not on any specific diet Pt does not want additional diabetic teaching at this time RD following
--- NOTE | 2019-02-28 09:31 | NUR ---
UNABLE TO GIVE ZOFRAN AT THIS TIME. PHARMACY NOTIFIED. WILL GIVE SOON IT IS AVAILABLE IN UNIT.
--- NOTE | 2019-02-28 10:53 | NUR ---
DR. HIGHTOWER AT BEDSIDE. MADE AWARE OF ANION GAP 19.3. WILL CONTINUE WITH INSULIN DRIP.
--- NOTE | 2019-02-28 11:30 | NUR ---
RESTING COMFORTABLY. CONTINUES ON INSULIN DRIP AT 1.1 ML/HR PER PROTOCOL. CONTINUES NPO FOR SCHEDULED EGD. EKG ACQUIRED AT THIS TIME PER ORDERS. NO FURTHER NEEDS. WILL CONTINUE TO MONITOR.
--- NOTE | 2019-02-28 12:46 | NUR ---
OFFERRED BATH AT THIS TIME. REFUSED. WANTS A BATH AFTER EGD HAS BEEN COMPLETED.
--- NOTE | 2019-02-28 13:31 | NUR ---
RESTING COMFORTABLY. FATHER AT BEDSIDE. HAS NOT HAD NAUSEA MOST OF TODAY. NO FURTHER NEEDS. WILL CONTINUE TO MONITOR.
--- NOTE | 2019-02-28 15:05 | NUR ---
PT STATES THAT SHE IS REALLY HUNGRY. SHE IS HOPING THAT SHE CAN EAT AFTER EGD IS COMPLETED. EXPLAINED TO HER THAT PT ON INSULIN DRIPS USUALLY REMAIN NPO UNTIL THEY COME OFF DRIP. SHE FEELS THAT IF SHE DOESN'T EAT SHE WILL FEEL SICK TO HER STOMACH AGAIN.
--- NOTE | 2019-02-28 15:50 | NUR ---
PT REQUESTING TO SPEAK TO DR. FRANCO. WILL NOTIFY DR. HIGHTOWER WHEN HE RETURNS TO ICU. PT CONTINUES TO BE ANNOYED THAT SHE HAS NOT BEEN ABLE TO EAT SINCE TUESDAY.
[2019-02-28 16:36] LABS: KETONE - SERUM SMALL mg/dL (NEGATIVE)
--- NOTE | 2019-02-28 16:40 | NUR ---
SPOKE WITH DR. RIOS. EGD CANCELLED DUE TO PT BEING ON INSULIN DRIP. PT UPSET. WANTS TO SPEAK TO DOCTOR. DR. HIGHTOWER NOTIFIED. WILL BE IN TO SEE PT SOON POSSIBLE.
[2019-02-28 16:45] LABS: ALBUMIN 2.7 g/dL (3.4-5.0); ALKALINE PHOSPHATASE 60 U/L (46-116); ALT (SGPT) 22 U/L (10-68); BILIRUBIN - TOTAL 0.47 mg/dL (0.2-1.3); CALC OSMOLALITY 283 mosm/kg (275-300); CALCIUM 7.9 mg/dL (8.5-10.1); CARBON DIOXIDE 22.4 mmol/L (21.0-32.0); CHLORIDE - SERUM 107 mmol/L (98-107); CREATININE - SERUM 0.6 mg/dL (0.6-1.3); GLUCOSE 212 mg/dL (74-106); POTASSIUM - SERUM 3.2 mmol/L (3.5-5.1); PROTEIN - SERUM 5.5 g/dL (6.4-8.2); SODIUM 141 mmol/L (136-145); UREA NITROGEN 4 mg/dL (7-18); eGFR NON AFRICAN AMERICAN > 90 mL/min (90-120)
--- NOTE | 2019-02-28 16:47 | NUR ---
PT REQUESTED JELLO AT THIS TIME. ONE CUP OF JELLO GIVEN. WILL SEE HOW SHE TOLERATES IT.
--- NOTE | 2019-02-28 16:48 | MORECARE ---
CASE MANAGEMENT DISCHARGE SUMMARY PATIENT: LUCIEN SCHROEDER UNIT: [id number] ADM DATE: 02/26/19 AGE: 23 : [birth year] SEX: F ROOM/BED: D.2307 AUTHOR: DAVINA,DOC PHYSICIAN: REFERRING PHYSICIAN: MELISSA YBARRA DO DATE OF SERVICE: 02/28/19 Discharge Plan Patient Name: LUCIEN SCHROEDER Facility: [facility]:[place] : 1995 Planned Disposition: Home Anticipated Discharge Date: Discharge Date: Expected LOS: Initial Reviewer: [email or web address] Initial Review Date: 02/28/2019 Generated: 02/28/19 5:47 pm Comments DCP- Discharge Planning Updated by [email or web address]: Lynne iMn on 02/28/19 3:[address] Patient Name: LUCIEN SCHROEDER Admission Status: ER Accout number: [id number] Admission Date: 02-26-2019 : 1995 Admission Diagnosis: Attending: MELISSA YBARRA Current LOS: 2 Anticipated DC Date: Planned Disposition: Home Primary Insurance: MEDICAID [place] Discharge Planning Comments: CM met with patient at bedside after explaining CM role and obtaining verbal consent. Patient lives at home with her parents, boyfriend and two children ( 3yr old and 8 weeks) and plans to return there upon discharge. Patient feels this would be a safe discharge. CM discussed availability / needs of home health and medical equipment. Patient denies any discharge needs at this time. Patient states she will have family drive her home upon discharge. CM will continue to follow and assist as needed with discharge planning / needs. Cotton Expert: Lynne Min DCPIA - Discharge Planning Initial Assessment Updated by [email or web address]: Lynne Min on 02/28/19 4:43 pm * Is the patient Alert and Oriented? Yes * How many steps to enter\exit or inside your home? ramp * PCP [facility] * Pharmacy [facility] * Preadmission Environment Home with Family * ADLs Independent * Equipment Glucometer * Other Equipment OLD INSULIN PUMP - HASN'T USED IT IN A LONG TIME * List name and contact numbers for known caregivers / representatives who currently or will assist patient after discharge: HERBERTH Mcintyre MOTHER- [phone] * Verbal permission to speak to the caregivers and representatives has been obtained from the patient. Yes * Community resources currently utilized None * Additional services required to return to the preadmission environment? Yes * Can the patient safely return to the preadmission environment? No * Has this patient been hospitalized within the prior 30 days at any hospital? Yes Patient Name: LUCIEN SCHROEDER Page [id number] at 1648 All edits/amendments must be made on the electronic document DICTATION DATE: 02/28/191646 QUANTITATIVE SOFTWARE ENGINEER: JENA 02/28/191646 RPT#: [id number] SC DATE: STATUS: ADM IN [facility] [address] [place] [address] END OF REPORT
--- NOTE | 2019-02-28 16:49 | NUR ---
LEVEMIR GIVEN PER ORDERS.
--- NOTE | 2019-02-28 17:22 | NUR ---
PT DENIED NAUSEA WHEN EATING JELLO. ADA TRAY DELIVERED TO ROOM.
--- NOTE | 2019-02-28 17:50 | NUR ---
DR. HIGHTOWER AT BEDSIDE. ANSWERED PT'S QUESTIONS. PT APPEARS SATISFIED AT THIS TIME.
--- NOTE | 2019-02-28 17:56 | NUR ---
PT STATES THAT SHE DOES NOT WANT EGD DONE TOMORROW.
--- NOTE | 2019-02-28 19:00 | NUR ---
DR. RIOS NOTIFIED THAT PT DOES NOT WANT EGD DONE TOMORROW.
--- NOTE | 2019-02-28 19:20 | NUR ---
SHIFT ASSESSMENT COMPLETED PER FLOW SHEET WITH NO ACUTE DISTRESS OBSERVED. REPORT RECEIVED. RECEIVED PT AWAKE AND ALERT. ORIENTED X 4. SPEECH CLEAR MONITORS CONNECTED TO PT WITH ALARMS SET. VSS.
--- NOTE | 2019-02-28 21:00 | NUR ---
AWAKE AND ALERT. VSS. DENIES ANY COMPLAINTS AT THIS TIME. CALL LIGHT IN REACH
--- NOTE | 2019-02-28 23:00 | NUR ---
REASSESSMENT COMPLETED PER FLOW SHEET WITH NO CHANGES OR ACUTE DISTRESS OBSERVED. CALL LIGHT IN REACH
[2019-03-01] VITALS (8 sets, daily range): BP systolic 99–128; BP diastolic 73–80
--- NOTE | 2019-03-01 01:00 | NUR ---
RESTING WITH EYES CLOSED. VSS.
--- NOTE | 2019-03-01 02:30 | NUR ---
SERUM POTASSIUM AND AM LABS DRAWN PER PICC LINE. AND SENT TO LAB
[2019-03-01 02:52] LABS: BASOPHILS 0.3 % (0-2); EOSINOPHILS 1.8 % (0-7); HEMATOCRIT 31.2 % (36.0-48.0); HEMOGLOBIN 10.2 g/dL (12-16); IMMATURE GRANULOCYTES 1.5 % (0-5); LYMPHOCYTES 44.9 % (15-50); MCH 25.4 pg (26.0-34.0); MCHC 32.7 g/dL (31.0-37.0); MCV 77.8 fL (80.0-100.0); MEAN PLATELET VOLUME 9.5 fL (7.4-10.4); MONOCYTES 8.8 % (2-11); NEUTROPHILS 42.7 % (40-80); PLATELET COUNT 74 10x3/uL (130-400); RBC 4.01 10x6/uL (4.00-5.40); RDW 16.6 % (11.5-14.5); WBC 6.8 10x3/uL (4.8-10.8)
--- NOTE | 2019-03-01 03:00 | NUR ---
SHIFT REASSESSMENT COMPLETED PER FLOW SHEET WITH NO CHANGES OR ACUTE DISTRESS OBSERVED. VSS. CALL LIGHT IN REACH.
[2019-03-01 03:02] LABS: ALBUMIN 2.6 g/dL (3.4-5.0); ALKALINE PHOSPHATASE 61 U/L (46-116); ALT (SGPT) 22 U/L (10-68); CALCIUM 7.9 mg/dL (8.5-10.1); CHLORIDE - SERUM 109 mmol/L (98-107); CREATININE - SERUM 0.6 mg/dL (0.6-1.3); MAGNESIUM - SERUM 1.6 mg/dL (1.8-2.4); PROTEIN - SERUM 5.5 g/dL (6.4-8.2); SODIUM 144 mmol/L (136-145); eGFR NON AFRICAN AMERICAN > 90 mL/min (90-120)
[2019-03-01 03:03] LABS: CALC OSMOLALITY 284 mosm/kg (275-300); CARBON DIOXIDE 28.1 mmol/L (21.0-32.0); GLUCOSE 104 mg/dL (74-106); POTASSIUM - SERUM 3.7 mmol/L (3.5-5.1); UREA NITROGEN 6 mg/dL (7-18)
[2019-03-01 03:44] LABS: PLATELET ESTIMATE DECREASED
--- NOTE | 2019-03-01 07:15 | NUR ---
SHIFT REPORT RECEIVED. PT RESTING ON RIGHT SIDE. DENIES ANY PAIN. NO NAUSEA. BLOOD GLUCOSE 105. ANION GAP HAS CLOSED. VSS. ON ROOM AIR. NO FEVER NOTED. ON D5NS AT 50ML/HR TO CARLITO PICC LINE. SHIFT ASSESSMENT COMPLETED. VOIDED ABOUT 600ML OR YELLOW URINE. NO STOOL. NO FURTHER NEEDS. WILL CONTINUE TO MONITOR.
--- NOTE | 2019-03-01 07:30 | NUR ---
DR. HIGHTOWER NOTIFIED OF GAP BEING 10.8 AND THAT INSULIN DRIP HAD BEEN STOPPED. HE ORDERED TO RESTART DIABETIC HOME MEDS.
--- NOTE | 2019-03-01 07:36 | NUR ---
MEAL TRAY DELIVERED TO ROOM. D5NS TURNED OFF AT THIS TIME. WILL CONTINUE TO MONITOR BLOOD GLUCOSE.
--- NOTE | 2019-03-01 09:17 | NUR ---
LEVEMIR GIVEN PER ORDERS. BLOOD GLUCOSE 177.
--- NOTE | 2019-03-01 11:27 | NUR ---
PT WANTING TO GO HOME. HER BABY IS SICK. LAST BLOOD GLUCOSE WAS 200. TREATED WITH 2 UNITS OF HUMALOG PER SLIDING SCALE. DR. HIGHTOWER NOTIFIED THAT PT WANTS TO GO HOME.
--- NOTE | 2019-03-01 12:15 | NUR ---
PICC LINE REMOVED BY VENOUS ACCESS NURSE, NERY. DISCHARGE PAPERWORK REVIEWED WITH PT. SIGNED COPY PLACED IN CHART. PT WAITING ON RIDE.
--- NOTE | 2019-03-01 18:40 | MORECARE ---
CASE MANAGEMENT DISCHARGE SUMMARY PATIENT: LUCIEN SCHROEDER UNIT: [id number] ADM DATE: 02/26/19 AGE: 23 : [birth year] SEX: F ROOM/BED: D.2307 AUTHOR: DAVINADOC PHYSICIAN: REFERRING PHYSICIAN: MELISSA YBARAR DO DATE OF SERVICE: 03/01/19 Discharge Plan Patient Name: LUCIEN SCHROEDER Facility: [facility]:[place] : 1995 Planned Disposition: Home Anticipated Discharge Date: Discharge Date: 03/01/2019 Expected LOS: Initial Reviewer: [email or web address] Initial Review Date: 02/28/2019 Generated: 03/01/19 7:39 pm Comments DCP- Discharge Planning Updated by [email or web address]: Lynne Min on 02/28/19 3:[address] Patient Name: LUCIEN SCHROEDER Admission Status: ER Accout number: [id number] Admission Date: 02-26-2019 : 1995 Admission Diagnosis: Attending: MELISSA YBARRA Current LOS: 2 Anticipated DC Date: Planned Disposition: Home Primary Insurance: MEDICAID [place] Discharge Planning Comments: CM met with patient at bedside after explaining CM role and obtaining verbal consent. Patient lives at home with her parents, boyfriend and two children ( 3yr old and 8 weeks) and plans to return there upon discharge. Patient feels this would be a safe discharge. CM discussed availability / needs of home health and medical equipment. Patient denies any discharge needs at this time. Patient states she will have family drive her home upon discharge. CM will continue to follow and assist as needed with discharge planning / needs. Identity Management Consultant: Lynne Min DCPIA - Discharge Planning Initial Assessment Updated by [email or web address]: Lynne Min on 02/28/19 4:43 pm * Is the patient Alert and Oriented? Yes * How many steps to enter\exit or inside your home? ramp * PCP [facility] [place] * Pharmacy [facility] * Preadmission Environment Home with Family * ADLs Independent * Equipment Glucometer * Other Equipment OLD INSULIN PUMP - HASN'T USED IT IN A LONG TIME * List name and contact numbers for known caregivers / representatives who currently or will assist patient after discharge: HERBERTH SCHROEDER - MOTHER- [phone] * Verbal permission to speak to the caregivers and representatives has been obtained from the patient. Yes * Community resources currently utilized None * Additional services required to return to the preadmission environment? Yes * Can the patient safely return to the preadmission environment? No * Has this patient been hospitalized within the prior 30 days at any hospital? Yes Last DP export: 02/28/19 3:48 p Patient Name: LUCIEN SCHROEDER Page [id number] at 1840 All edits/amendments must be made on the electronic document DICTATION DATE: 03/01/191838 LINE PRODUCER: JENA 03/01/191838 RPT#: [id number] DC DATE:03/01/19 STATUS: DIS IN [facility] [address] [place] [address] END OF REPORT
== END 2019-03-01 13:22 | disposition home or self-care (01) | DRG 638 ==
LOC: D.ER 12:14 → D.MS 14:55 → D.EDHOLD 14:55 → OBSVTIME 14:55 → D.MS 15:37 → D.ICU 02-26 13:05 → D.MS 02-26 13:05 → D.ICU 02-26 14:24
PROVIDERS: Family Medicine; Internal Medicine Nephrology; ADMIT Family Medicine; ATTEND Family Medicine
PROC: 05HY33Z Insertion of Infusion Device into Upper Vein, Percutaneous Approach (ICD-10-PCS; principal; 2019-02-28)
DX: E10.10 Type 1 diabetes mellitus with ketoacidosis without coma (principal); N39.0 Urinary tract infection, site not specified; E87.2 Acidosis; D50.9 Iron deficiency anemia, unspecified; E87.6 Hypokalemia; K20.9 Esophagitis, unspecified; E10.43 Type 1 diabetes mellitus with diabetic autonomic (poly)neuropathy; K31.84 Gastroparesis

== ENCOUNTER → 2021-04-13 15:09 | Outpatient (CLI) | payer BC ==
[2019-02-26 13:49] VITALS: BMI 18.3
== END | disposition home or self-care (01) ==
LOC: D.US 14:30
PROVIDERS: ATTEND Student in an Organized Health Care Education/Training Program
DX: N63.10 Unspecified lump in the right breast, unspecified quadrant (principal)